=== PATIENT | female | born 1995 | race Caucasian/White ===

== ENCOUNTER 2021-11-10 09:42 | Outpatient (CLI) | payer OTHER, SELFPAY ==
[2021-11-10 10:42] LABS: Basophils Percent Auto 0.5 % (0.2-1.2); Eosinophils Absolute Auto 0.1 K/mm3 (0-0.3); Eosinophils Percent Auto 0.8 % (0-4.4); Hematocrit 35.9 % (37.0-47.0); Immature Granulocyte Absolute 0.02 K/mm3 (0.00-0.031); Immature Granulocyte Percent A 0.2 % (0-0.5); Lymphocytes Absolute Auto 2.87 K/mm3 (0.9-3.2); Lymphocytes Percent Auto 32.5 % (18.3-44.2); Mean Corpuscular HGB Conc 33.4 g/dl (32-36); Mean Corpuscular Hemoglobin 31.9 pg (26-34); Mean Corpuscular Volume 95.5 fl (80-100); Mean Platelet Volume 10.7 fl (7.4-10.4); Monocytes Absolute Auto 0.7 K/mm3 (0.1-0.6); Monocytes Percent Auto 8.2 % (2.6-8.5); Neutrophils Absolute Auto 5.1 K/mm3 (1.3-6.7); Neutrophils Percent Auto 57.8 % (45.5-73.1); Platelet Count Result 253 k/mm3 (150-375); Red Blood Count 3.76 M/mm3 (4.2-5.4); Red Cell Distribution Width 11.8 % (11.5-14.5); White Blood Count 8.8 K/mm3 (4.5-10.0)
[2021-11-10 10:55] LABS: Alanine Aminotransferase 24 U/L (4-35); Albumin Level 4.1 g/dL (3.5-5.1); Alkaline Phosphatase 67 U/L (38-126); Anion Gap 6 mmol/L (8-16); Aspartate Amino Transferase 31 U/L (14-36); Bilirubin,Total 0.6 mg/dL (0.2-1.3); Blood Urea Nitrogen 8 mg/dL (7-17); Calcium 8.4 mg/dL (8.4-10.2); Carbon Dioxide 27 mmol/L (22-30); Chloride 105 mmol/L (98-107); Estimated Glomerular Filt Rate > 60; Glucose 75 mg/dL (65-110); Potassium 3.7 mmol/L (3.4-5.0); Sodium 138 mmol/L (137-145)
[2021-11-10 11:12] LABS: Vitamin D 25 Hydroxy 15.3 ng/mL
== END 2021-11-10 09:43 | disposition home or self-care (01) ==
LOC: ANHLAB 09:46
PROVIDERS: PCP Internal Medicine; Visit Provider Internal Medicine
DX: Z00.00 Encounter for general adult medical examination without abnormal findings (principal); E55.9 Vitamin D deficiency, unspecified
CPT/HCPCS: 36415; 80053; 82306; 84443; 85025

== ENCOUNTER 2021-12-31 16:18 | Emergency (ER) | payer OTHER, SELFPAY ==
[2021-12-31 16:27] VITALS: BP 124/72; PULSE 82; RESP 16; TEMP 36.6; O2SAT 100
--- NOTE | 2021-12-31 16:46 | ED.URI ---
HPI - URI/Sore Throat General Chief Complaint: Upper Respiratory Infection Stated Complaint: Sore throat, cough Time Seen by Provider: 12/31/21 16:46 Source: patient, RN notes reviewed and old records reviewed History of Present Illness HPI Narrative: 26-year-old female who presents to [facility] with complaints of cough and congested nose and postnasal drainage, sore throat and some body aches starting last p.m, she denies any fevers chills or sweats. States she has been taking ibuprofen for her symptoms. has been ill since last week no other close contact. Patient denies any history of asthma or any complaints of shortness of breath at this time. Patient voices some soreness of her throat with swallowing. no tachypnea noted, respirations even and nonlabored. MD elicited complaint: rhinorrhea, nasal congestion and other (PND) Onset (ago): hour(s) (last evening) Consistency: progressively worsening Severity: mild Able to tolerate fluids by mouth: Yes Exacerbating factors: swallowing Context: sick contacts Associated symptoms: myalgias, rhinorrhea, nasal congestion, sore throat and cough Treatments prior to arrival: ibuprofen Related Data Allergies Allergy/AdvReac Type Severity Reaction Status Date / Time No Known Allergies Allergy Verified 12/31/21 16:34 Review of Systems Review of Systems: CONSTITUTIONAL: Denies fever, chills, or sweats. EYES: Denies visual changes, redness, or discharge. ENT: positive for some post nasal rhinorrhea, congestion, sore throat, no otalgia. CARDIOVASCULAR: Denies chest pain, palpitations, or edema. RESPIRATORY: Positive for cough denies dyspnea. GASTROINTESTINAL: Denies abdominal pain, nausea, vomiting, or diarrhea. GENITOURINARY: Denies dysuria or hematuria. SKIN: Denies rash or itching. MUSCULOSKELETAL: Denies back pain, joint pain,reports some body aches NEUROLOGIC: Denies headache, numbness, or weakness. PSYCHIATRIC: Denies anxiety or depression. All systems reviewed & are unremarkable except as noted in HPI and below PMFSH Past Medical History Medical History Asymptomatic Exposure to COVID-19 virus Family History Family History Sibling Family history of attention deficit hyperactivity disorder (ADHD) Grandparent Diabetes mellitus Other Family history of cardiovascular disease Hypertension Social History Social History Second hand tobacco smoke exposure: No Alcohol intake: current Substance use: never Substance use type: does not use Comments At time of signature, agree with nursing past medical, surgical, social and family history. There is no relevant family history pertinent to the presenting complaint Exam Narrative: GENERAL: Well-appearing, well-nourished, and in no acute distress. HEAD: Normocephalic, atraumatic. EYES: PERRLA and EOMI. ENT: Nares minimal redness with clear rhinorrhea no epistaxis. Mucous membranes moist.TM's normal with good light reflex, throat with some redness, no lesions or exudates, tonsils swollen, post nasal drainage noted NECK: Supple. no lymphadenopathy CHEST: Clear to auscultation. No respiratory distress.some cough SAO2 100% on room air HEART: Regular rate and rhythm. No murmur heard. Normal peripheral pulses. ABDOMEN: Soft, nontender, nondistended, normal active bowel sounds. EXTREMITIES: Normal range of motion. No edema. SKIN: Warm, dry, no rash. NEURO: No focal deficits. Alert and oriented x3. Course Course Level of Care: Express Care Visit Vital Signs Vital signs: Vital Signs Temperature 36.6 C 12/31/21 16:27 Pulse Rate 82 12/31/21 16:27 Respiratory Rate 16 12/31/21 16:27 Blood Pressure 124/72 12/31/21 16:27 Pulse Oximetry 100 12/31/21 16:27 Temperature 36.6 C 12/31/21 16:27 Pulse Rate 82 12/31/21 16:27 Respiratory Rate
== END 2021-12-31 17:10 | disposition home or self-care (01) ==
PROVIDERS: Emergency Provider Registered Nurse; PCP Internal Medicine
DX: J06.9 Acute upper respiratory infection, unspecified (principal); J02.9 Acute pharyngitis, unspecified
CPT/HCPCS: 87081; 87880; 99213; G0463

== ENCOUNTER 2023-08-17 19:49 | Emergency (ER) | payer OTHER, SELFPAY ==
[2023-08-17 19:56] VITALS: BP 138/84; PULSE 71; RESP 14; TEMP 36.4; O2SAT 100
--- NOTE | 2023-08-17 20:53 | ED.EYEPROB ---
HPI - Eye Problem General Chief complaint: Eye Problems Stated complaint: vision changes Time Seen by Provider: 08/17/23 20:02 History of Present Illness HPI Narrative: This is a 28-year-old female, with history of myopia, who presents to the emergency department with painless visual changes. Patient states approximately 1 hour prior to arrival, she was in her usual health when she noticed a flashing white rosebud in the center of her vision. This was not associated with pain, weakness or numbness. She states this resolved but was followed by a moving black dot. She has no other complaints at this time. Related Data Allergies Allergy/AdvReac Type Severity Reaction Status Date / Time No Known Allergies Allergy Verified 07/04/22 13:12 Review of Systems Review of Systems: CONSTITUTIONAL: Denies fever, chills, or sweats. EYES: Visual changes as in HPI Denies redness, or discharge. ENT: Denies rhinorrhea, congestion, sore throat, or otalgia. CARDIOVASCULAR: Denies chest pain, palpitations, or edema. MUSCULOSKELETAL: Denies back pain, joint pain, or myalgia. NEUROLOGIC: Denies headache, numbness, dizziness, or weakness. PSYCHIATRIC: Denies anxiety or depression. PMFSH Past Medical History Medical History Asymptomatic Exposure to COVID-19 virus Surgical History Surgical History [place] teeth removed Family History Family History Sibling Family history of attention deficit hyperactivity disorder (ADHD) Grandparent Diabetes mellitus Other Family history of cardiovascular disease Hypertension Social History Social History Smoking status: Never smoker Second hand tobacco smoke exposure: No Alcohol intake: current Substance use: never Substance use type: does not use Exam Narrative: GENERAL: Well-developed, well-nourished, and in no acute distress. HEAD: Normocephalic, atraumatic. EYES: PERRLA and EOMI. No obvious abnormalities on funduscopic exam. OD 20/20, OS 20/20 ENT: Nares clear, no rhinorrhea or epistaxis. Mucous membranes moist. Oropharynx without tonsillar hypertrophy exudate or other lesions. CHEST: Clear to auscultation. No respiratory distress. No wheezes rales or rhonchi HEART: Regular rate and rhythm. No murmur heard. Normal peripheral pulses. NEURO: Alert and oriented x3. No focal deficit. Moving all 4 limbs spontaneously PSYCH: Normal mood and affect. Course Course Emergency Course: 20:50 - Pressures OD 19, OS 17, bedside ultrasound of the bilateral eyes by me is not concerning for retinal or vitreous detachment. The optic nerve diameter measures 0.46 cm on the right and 0.42 cm on the left, not concerning for papilledema. Fluorescein staining not concerning for corneal abrasion. I suspect the patient's symptoms are related to scotoma. Will discharge with recommendation for Ophthalmology and primary care follow-up. Discussed return and emergency precautions including signs/symptoms of retinal detachment. The patient voiced understanding and is comfortable with the plan. All questions answered to her satisfaction. Vital Signs Vital signs: Vital Signs Temperature 97.5 F L 08/17/23 19:56 Pulse Rate 71 08/17/23 19:56 Respiratory Rate 14 08/17/23 19:56 Blood Pressure 138/84 08/17/23 19:56 Pulse Oximetry 100 08/17/23 19:56 Oxygen Delivery Room Air 08/17/23 19:56 Temperature 97.5 F L 08/17/23 19:56 Pulse Rate 71 08/17/23 19:56 Respiratory Rate 14 08/17/23 19:56 Blood Pressure 138/84 08/17/23 19:56 Pulse Oximetry 100 08/17/23 19:56 Oxygen Delivery Room Air 08/17/23 19:56 MDM - Eye Problem MDM Narrative Medical decision making narrative: plan: Fluorescein staining, ultrasound, telemetry, reassess Differen
== END 2023-08-17 21:06 | disposition home or self-care (01) ==
PROVIDERS: Emergency Provider Preventive Medicine Aerospace Medicine; PCP Family Medicine
DX: H53.413 Scotoma involving central area, bilateral (principal)
CPT/HCPCS: 99283

== ENCOUNTER 2023-09-03 15:50 | Outpatient (CLI) | payer OTHER, SELFPAY ==
--- NOTE | ~2023-09-03 | CT_ITS ---
EXAMINATION: CT BRAIN W/O DATE: 09/03/2023 16:03 INDICATION: Headache. TECHNIQUE: Computed tomography (CT) of the head was performed without intravenous contrast. The dose- length product was 599.57 mGy-cm. Automated exposure control and iterative reconstruction technique w ere employed. COMPARISON: No prior studies for comparison. FINDINGS: Normal brain parenchymal volume for age. Normal foley-white differentiation. No acute intrac ranial hemorrhage, infarction, mass or mass effect. No ventriculomegaly or midline shift. Midline sagittal images demonstrate a normal corpus callosum, c raniovertebral junction and sella turcica. Basilar cisterns are patent. Paranasal sinuses and mastoids are pneumatized. No depressed skull fractures. IMPRESSION: 1. No acute intracranial abnormality. Reviewed, dictated and finalized at location B. [employer]
== END 2023-09-03 15:51 ==
LOC: MICIMG 15:51
PROVIDERS: PCP Family Medicine; Visit Provider Family Medicine
DX: G43.109 Migraine with aura, not intractable, without status migrainosus (principal)
CPT/HCPCS: 70450